=== PATIENT | female | born 1970 | race Caucasian/White ===

== ENCOUNTER → 2018-03-06 | Emergency (ER) | payer OTHER ==
[~2018-03-06] VITALS: Ht 157.5 cm; Wt 84.4 kg
[~2018-03-06] MED LIST: AMARYL; AZITHROMYCIN500 MG PO; DOXYCYCLINE HY100 MG PO; GLIPIZIDE ER5 MG; GLUCOTROL10 MG; INTESTINEX680 M1 PO; KETO10TA2 PO; LANTUS SOL100 UNIT/1; MEDROL4 MG PO; METFORMIN HCL500 MG; MOTRIN800 MG PO; ONGLYZA5 MG; PEPCID AC20 MG PO; TUSSIONEX PENNKI5 ML PO; XOPENEX1.25 MG/0. IH
== END | disposition home or self-care (01) ==
LOC: ER 18:59
DX: N39.0 Urinary tract infection, site not specified (principal); R10.2 Pelvic and perineal pain; N70.91 Salpingitis, unspecified

== ENCOUNTER 2023-06-09 11:34 | Emergency (ER) | payer OTHER ==
[~2023-06-09] VITALS: Ht 157.5 cm; Wt 79.4 kg
[~2023-06-09 11:34] MED LIST changes: +BACTRIM DS TAB1 EACH PO; +BENZACLIN GEL25 GM TOP; +CEFUROXIME500 MG PO; +CELEBREX100 MG PO; +CIPRO500 MG PO; +CYCLOBENZAPRINE10 MG PO; +DICLOFENAC POTA50 MG PO; +ENZYCAP PO; +FLOVENT HFA12 GM IH; +GLIMEPIRIDE2 MG; +LANTUS; +LEVSIN/SL0.125 MG PO; +LEVSIN/SL0.125 MG SL; +LIPITOR20 MG PO; +METFORMIN HCL500 M3 PO; +NORFLEX100MG PO; +ONGLYZA2.5 MG; +PRINIVIL5 MG; +SINGULAIR 10MG10 MG PO; +TRADJENTA5 MG; +VOLTAREN-XR100 MG PO; +ZANTAC300 MG; +ZYNCOF 20-400120 ML PO
[2023-06-09] MEDS ORDERED: ZESTRIL2.5 MG (12:08)
== END 2023-06-09 13:18 | disposition home or self-care (01) ==
LOC: ER 11:34
DX: H00.14 Chalazion left upper eyelid (principal)

== ENCOUNTER 2023-07-16 15:32 | Emergency (ER) | payer OTHER ==
[~2023-07-16] VITALS: Ht 157.5 cm; Wt 79.8 kg
[~2023-07-16 15:32] MED LIST changes: +ZESTRIL2.5 MG
[2023-07-16 17:32] LABS: HEMATOCRIT 39.1 % (36.0-45.00); HEMOGLOBIN 13.1 g/dL (12.0-15.00); MEAN CELL VOLUME 77.5 fL (80.00-100.00); MEAN CORPUSCULAR HGB CONC 33.5 g/dl (32.0-36.0); PLATELET COUNT 174 K/uL (150-450); RED BLOOD COUNT 5.05 M/uL (4.00-6.00); RED CELL DISTRIBUTION WIDTH 13.7 % (11.5-14.5)
[2023-07-16] MEDS ORDERED: ZITHROMAX500 MG PO (19:40)
[2023-07-16] MEDS ORDERED: XOPENEX CO1.25 MG/0. IH (19:40)
== END 2023-07-16 20:19 | disposition home or self-care (01) ==
LOC: ER 15:32
PROVIDERS: General Practice
DX: J06.9 Acute upper respiratory infection, unspecified (principal); E11.9 Type 2 diabetes mellitus without complications; Z79.84 Long term (current) use of oral hypoglycemic drugs; I10 Essential (primary) hypertension; Z87.09 Personal history of other diseases of the respiratory system; Z88.8 Allergy status to other drugs, medicaments and biological substances; Z20.822 Contact with and (suspected) exposure to COVID-19

== ENCOUNTER 2023-08-12 15:07 | Outpatient (CLI) | payer OTHER ==
[~2023-08-12 15:07] MED LIST changes: +XOPENEX CO1.25 MG/0. IH; +ZITHROMAX500 MG PO
== END 2023-08-12 15:17 | disposition home or self-care (01) ==
LOC: MRI 15:07
DX: M51.16 Intervertebral disc disorders with radiculopathy, lumbar region (principal); M48.062 Spinal stenosis, lumbar region with neurogenic claudication
CPT/HCPCS: 72148

== ENCOUNTER 2023-08-30 10:05 | Emergency (ER) | payer OTHER ==
[~2023-08-30] VITALS: Ht 157.5 cm; Wt 78.0 kg
[2023-08-30] MEDS ORDERED: GLUMETZA1000 MG (10:33)
[2023-08-30] MEDS ORDERED: IPRATROPIUM BROMIDE 0.5 MG/2.5 ML AMPUL.NEB IH ONE (11:45)
[2023-08-30] MEDS ORDERED: LEVALBUTEROL HCL 0.63 MG/3 ML SOLUTION IH ONE (11:45)
[2023-08-30] MEDS ORDERED: INSULIN REGULAR, HUMAN 1,000 UNIT/10 ML UNITS SUBCUTANEO ONE (11:45)
[2023-08-30 12:36] LABS: PH,URINE 5.5 (5.0-8.0); URINE APPEARANCE Clear; URINE BILIRRUBIN Negative (NEGATIVE); URINE BLOOD Negative; URINE COLOR Yellow; URINE LEUKOCYTE Trace; URINE NITRATE Negative; URINE PROTEIN Negative (NEGATIVE)
[2023-08-30 12:37] LABS: HEMATOCRIT 36.4 % (36.0-45.00); HEMOGLOBIN 12.1 g/dL (12.0-15.00); MEAN CELL VOLUME 77.8 fL (80.00-100.00); MEAN CORPUSCULAR HEMOGLOBIN 25.8 pg (27.00-32.0); MEAN CORPUSCULAR HGB CONC 33.2 g/dl (32.0-36.0); PLATELET COUNT 193 K/uL (150-450); RED BLOOD COUNT 4.67 M/uL (4.00-6.00); RED CELL DISTRIBUTION WIDTH 14.2 % (11.5-14.5)
[2023-08-30 12:40] LABS: URINE BACTERIA 700.4 uL (0.0-1933); URINE EPITHELIAL CELLS 10.2 uL (0.0-38.8); URINE WBC 24.8 uL (0.0-23.2)
[2023-08-30] MEDS ORDERED: ACETAMINOPHEN 325 MG TABLET PO SCH (13:00)
[2023-08-30 13:03] LABS: URINE GLUCOSE >=1000 MG/DL (NEGATIVE); URINE RBC 1.8 uL (0.0-20.8)
[2023-08-30 13:19] LABS: ALBUMIN 3.3 gm/dL (3.4-5.0); BILIRUBIN TOTAL 0.29 mg/dL (0.3-1.2); CALCIUM 9.2 mg/dL (8.5-10.1); CREATININE SERUM 0.68 mg/dL (0.55-1.02); GFR 90.51; GLOBULINA 3.7 G/DL (2.4-3.5); POTASSIUM 3.67 mEq/L (3.5-5.1)
== END 2023-08-30 14:55 | disposition home or self-care (01) ==
LOC: ER 10:05
PROVIDERS: General Practice
DX: J45.901 Unspecified asthma with (acute) exacerbation (principal); A90 Dengue fever [classical dengue]; E11.65 Type 2 diabetes mellitus with hyperglycemia; Z79.84 Long term (current) use of oral hypoglycemic drugs; Z88.8 Allergy status to other drugs, medicaments and biological substances

== ENCOUNTER 2023-10-24 07:37 | Inpatient (IN) | payer OTHER ==
[~2023-10-24] VITALS: Ht 157.5 cm; Wt 78.9 kg
[~2023-10-24 07:37] MED LIST changes: +GLUMETZA1000 MG
[2023-10-24] MEDS ORDERED: LIPITOR40 M1 PO (07:59)
[2023-10-24 09:10] LABS: HEMATOCRIT 35.9 % (36.0-45.00); HEMOGLOBIN 11.9 g/dL (12.0-15.00); MEAN CELL VOLUME 78.3 fL (80.00-100.00); MEAN CORPUSCULAR HEMOGLOBIN 25.9 pg (27.00-32.0); PLATELET COUNT 216 K/uL (150-450); RED BLOOD COUNT 4.59 M/uL (4.00-6.00); RED CELL DISTRIBUTION WIDTH 13.9 % (11.5-14.5)
[2023-10-24 09:12] LABS: URINE APPEARANCE Turbid; URINE BILIRRUBIN Negative (NEGATIVE); URINE COLOR Dark Yellow; URINE LEUKOCYTE Moderate; URINE NITRATE Negative; URINE PROTEIN 30 (NEGATIVE)
[2023-10-24 09:12] LABS: ALBUMIN 3.5 gm/dL (3.4-5.0); BILIRUBIN TOTAL 0.68 mg/dL (0.3-1.2); CALCIUM 9.5 mg/dL (8.5-10.1); CREATININE SERUM 0.59 mg/dL (0.55-1.02); GFR 106.62; GLOBULINA 3.6 G/DL (2.4-3.5); POTASSIUM 3.63 mEq/L (3.5-5.1); TOTAL PROTEIN 7.1 gm/dL (6.4-8.2)
[2023-10-24 09:15] LABS: URINE RBC 130.4 uL (0.0-20.8); URINE WBC 917.1 uL (0.0-23.2)
[2023-10-24 09:19] LABS: URINE BACTERIA > 9821.5 uL (0.0-1933); URINE BLOOD TRACE; URINE EPITHELIAL CELLS > 201.7 uL (0.0-38.8); URINE GLUCOSE >=1000 MG/DL (NEGATIVE)
[2023-10-24 09:44] LABS: URINE CRYSTALS MANY /HPF
[2023-10-24] MEDS ORDERED: FAMOTIDINE/PF 20 MG/2 ML VIAL IV SCH ×2 (12:11→21:00)
[2023-10-24] MEDS ORDERED: CEFTRIAXONE SODIUM 2,000 MG in 0.9 % SODIUM CHLORIDE 100 ML IV SCH (12:11)
[2023-10-24] MEDS ORDERED: 0.9 % SODIUM CHLORIDE 1,000 ML IV SCH (12:15)
[2023-10-24] MEDS ORDERED: INSULIN LISPRO 1,000 UNIT/10 ML UNITS SUBCUTANEO PRN (12:15)
[2023-10-24] MEDS ORDERED: DEXTROSE 50 % IN WATER 0.5 G/ML DISP.SYRIN IV PRN (12:15)
[2023-10-24] MEDS ORDERED: MONTELUKAST SODIUM 4 MG TABLET PO SCH (12:18)
[2023-10-24] MEDS ORDERED: MEPERIDINE HCL/PF 50 MG/ML VIAL IV SCH (13:00)
[2023-10-24] MEDS ORDERED: MONTELUKAST SODIUM 10 MG TABLET PO SCH (13:02)
[2023-10-24] MEDS ORDERED: MEPERIDINE HCL/PF 50 MG/ML VIAL IM SCH (13:55)
[2023-10-24 14:31] LABS: INR 1.03; PARTIAL THROMBOPLASTIN TIME 24.2 SECONDS (22.0-34.0); PROTHROMBIN TIME 10.8 SECONDS (9.0-11.5)
[2023-10-24] MEDS ORDERED: LISINOPRIL 2.5 MG TABLET PO SCH (15:27)
[2023-10-24] MEDS ORDERED: MEPERIDINE HCL/PF 25 MG/ML VIAL IV PRN (15:30)
[2023-10-24] MEDS ORDERED: KETOROLAC TROMETHAMINE 30 MG VIAL IV PRN (15:30)
[2023-10-24] MEDS ORDERED: DOXYCYCLINE HYCLATE 100 MG in 0.9 % SODIUM CHLORIDE 250 ML IV SCH (16:00)
[2023-10-24] MEDS ORDERED: NYSTATIN 30 GM,SILVER SULFADIAZINE 50 GM,ZINC OXIDE 30 GM TOP SCH (17:00)
[2023-10-24] MEDS ORDERED: INSULIN LISPRO 1,000 UNIT/10 ML UNITS SUBCUTANEO SCH (17:00)
[2023-10-24] MEDS ORDERED: INSULIN GLARGINE,HUM.REC.ANLOG 1,000 UNITS/10 ML UNITS SUBCUTANEO SCH (21:00)
[2023-10-25] MEDS ORDERED: ACYCLOVIR 400 MG TABLET PO SCH (01:00)
[2023-10-25 06:29] LABS: HEMATOCRIT 31.6 % (36.0-45.00); HEMOGLOBIN 10.7 g/dL (12.0-15.00); MEAN CELL VOLUME 77.9 fL (80.00-100.00); MEAN CORPUSCULAR HEMOGLOBIN 26.4 pg (27.00-32.0); MEAN CORPUSCULAR HGB CONC 33.9 g/dl (32.0-36.0); PLATELET COUNT 195 K/uL (150-450); RED BLOOD COUNT 4.06 M/uL (4.00-6.00); RED CELL DISTRIBUTION WIDTH 14.2 % (11.5-14.5)
[2023-10-25 07:10] LABS: BILIRUBIN TOTAL 0.34 mg/dL (0.3-1.2); CALCIUM 8.3 mg/dL (8.5-10.1); CHOL HDL RATIO 5.1 (0-5.0); CREATININE SERUM 0.57 mg/dL (0.55-1.02); GFR 110.95; GLOBULINA 2.8 G/DL (2.4-3.5); MAGNESIUM 1.9 mg/dL (1.8-2.4); PHOSPHOROUS 3.1 mg/dL (2.5-4.9); POTASSIUM 4.07 mEq/L (3.5-5.1); TOTAL PROTEIN 5.8 gm/dL (6.4-8.2)
[2023-10-25] MEDS ORDERED: INSULIN LISPRO 1,000 UNIT/10 ML UNITS SUBCUTANEO SCH (08:00)
[2023-10-25] MEDS ORDERED: ENOXAPARIN SODIUM 40 MG/0.4 ML SYRINGE SUBCUTANEO SCH (09:00)
[2023-10-25] MEDS ORDERED: AMINO ACIDS 1 EACH TABLET PO SCH (17:48)
[2023-10-25] MEDS ORDERED: INSULIN GLARGINE,HUM.REC.ANLOG 1,000 UNITS/10 ML UNITS SUBCUTANEO SCH (21:00)
[2023-10-26] MEDS ORDERED: IRON FUM,PS/FOLIC/BCOMP,C NO.9 1 CAP CAPSULE PO SCH (09:00)
[2023-10-26] MEDS ORDERED: POLYETHYLENE GLYCOL 3350 17 GM BLIST.PACK PO STA (11:27)
[2023-10-26] MEDS ORDERED: LACTULOSE 20 G/30 ML BLIST.PACK PO STA (11:27)
[2023-10-26] MEDS ORDERED: MAGNESIUM HYDROXIDE 30 ML BLIST.PACK PO STA (11:27)
[2023-10-26] MEDS ORDERED: POLYETHYLENE GLYCOL 3350 17 GM BLIST.PACK PO SCH (17:00)
[2023-10-26 19:10] LABS: chla t Negative (Negative); neiss Negative (Negative)
[2023-10-27 05:30] LABS: ALBUMIN 3.1 gm/dL (3.4-5.0); BILIRUBIN TOTAL 0.3 mg/dL (0.3-1.2); CALCIUM 8.7 mg/dL (8.5-10.1); CREATININE SERUM 0.52 mg/dL (0.55-1.02); GFR 123.35; GLOBULINA 2.8 G/DL (2.4-3.5); MAGNESIUM 2.2 mg/dL (1.8-2.4); POTASSIUM 3.98 mEq/L (3.5-5.1); TOTAL PROTEIN 5.9 gm/dL (6.4-8.2)
[2023-10-27 06:16] LABS: HEMATOCRIT 31.6 % (36.0-45.00); HEMOGLOBIN 10.7 g/dL (12.0-15.00); MEAN CELL VOLUME 77.4 fL (80.00-100.00); MEAN CORPUSCULAR HEMOGLOBIN 26.2 pg (27.00-32.0); MEAN CORPUSCULAR HGB CONC 33.9 g/dl (32.0-36.0); PLATELET COUNT 203 K/uL (150-450); RED BLOOD COUNT 4.08 M/uL (4.00-6.00)
[2023-10-27] MEDS ORDERED: CHLORHEXIDINE GLUCONATE 120 ML BOTTLE TOP SCH (12:36)
[2023-10-27] MEDS ORDERED: GABAPENTIN 300 MG CAPSULE PO SCH (17:00)
[2023-10-27] MEDS ORDERED: INSULIN GLARGINE,HUM.REC.ANLOG 1,000 UNITS/10 ML UNITS SUBCUTANEO SCH (21:00)
[2023-10-28] MEDS ORDERED: DOXYCYCLINE HY100 M2 PO (08:52)
[2023-10-28] MEDS ORDERED: CEFDINIR300 MG PO (08:52)
[2023-10-28] MEDS ORDERED: INTESTINEX680 M1 PO (08:54)
[2023-10-28] MEDS ORDERED: PEPCID AC20 MG PO (08:55)
[2023-10-28] MEDS ORDERED: HIBICLENS118 ML TOP (08:57)
[2023-10-28] MEDS ORDERED: POLYETHYLENE GLYCOL 3350 17 GM BLIST.PACK PO SCH (09:00)
[2023-10-28 10:20] LABS: PH,URINE 5.5 (5.0-8.0); URINE APPEARANCE Cloudy; URINE BILIRRUBIN Negative (NEGATIVE); URINE BLOOD Trace; URINE COLOR Yellow; URINE GLUCOSE Negative (NEGATIVE); URINE LEUKOCYTE Large; URINE NITRATE Negative; URINE PROTEIN Negative (NEGATIVE); URINE UROBILINOGEN 0.2 E.U./dl
[2023-10-28 10:24] LABS: URINE BACTERIA 764.7 uL (0.0-1933); URINE EPITHELIAL CELLS 190.7 uL (0.0-38.8); URINE RBC 28.4 uL (0.0-20.8); URINE WBC 584.2 uL (0.0-23.2)
[2023-10-28 10:44] LABS: URINE YEAST FEW /hpf
[2023-10-28] MEDS ORDERED: INSULIN GLARGINE,HUM.REC.ANLOG 1,000 UNITS/10 ML UNITS SUBCUTANEO SCH (21:00)
== END 2023-10-28 10:11 | disposition home or self-care (01) | DRG 690 ==
LOC: ER 07:37 → SEC-K 13:12 → MEDI 13:12
PROVIDERS: Emergency Medicine; General Practice; Internal Medicine; ADMIT Internal Medicine; ATTEND Internal Medicine
DX: N39.0 Urinary tract infection, site not specified (principal); A60.04 Herpesviral vulvovaginitis; N76.5 Ulceration of vagina; B95.61 Methicillin susceptible Staphylococcus aureus infection as the cause of diseases classified elsewhere; B96.89 Other specified bacterial agents as the cause of diseases classified elsewhere; J44.9 Chronic obstructive pulmonary disease, unspecified; K60.3 Anal fistula; I10 Essential (primary) hypertension; Z79.4 Long term (current) use of insulin; E11.65 Type 2 diabetes mellitus with hyperglycemia

== ENCOUNTER 2024-01-29 09:03 | Emergency (ER) | payer OTHER ==
[~2024-01-29] VITALS: Ht 157.5 cm; Wt 78.9 kg
[~2024-01-29 09:03] MED LIST changes: +CEFDINIR300 MG PO; +DOXYCYCLINE HY100 M2 PO; +HIBICLENS118 ML TOP; +LIPITOR40 M1 PO
[2024-01-29] MEDS ORDERED: TRIJARDY XR 5-1 EACH PO (09:32)
[2024-01-29] MEDS ORDERED: KETOROLAC TROMETHAMINE 60 MG VIAL IM STA (10:00)
== END 2024-01-29 11:53 | disposition home or self-care (01) ==
LOC: ER 09:03
DX: B34.9 Viral infection, unspecified (principal); Z88.8 Allergy status to other drugs, medicaments and biological substances; Z87.09 Personal history of other diseases of the respiratory system; E11.9 Type 2 diabetes mellitus without complications; Z79.84 Long term (current) use of oral hypoglycemic drugs; Z20.822 Contact with and (suspected) exposure to COVID-19

== ENCOUNTER 2024-04-27 08:31 | Emergency (ER) | payer OTHER ==
[~2024-04-27] VITALS: Ht 157.5 cm; Wt 72.6 kg
[~2024-04-27 08:31] MED LIST changes: +TRIJARDY XR 5-1 EACH PO
[2024-04-27] MEDS ORDERED: 0.9 % SODIUM CHLORIDE 1,000 ML IV ONE (09:00)
[2024-04-27] MEDS ORDERED: ONDANSETRON HCL 2 MG/ML VIAL IV ONE (09:00)
[2024-04-27] MEDS ORDERED: FAMOtidine 10 MG/ML (4ML VIAL) IV ONE (09:00)
[2024-04-27 10:00] LABS: HEMATOCRIT 40.9 % (36.0-45.00); HEMOGLOBIN 13.4 g/dL (12.0-15.00); MEAN CELL VOLUME 80.2 fL (80.00-100.00); MEAN CORPUSCULAR HEMOGLOBIN 26.3 pg (27.00-32.0); MEAN CORPUSCULAR HGB CONC 32.7 g/dl (32.0-36.0); PLATELET COUNT 247 K/uL (150-450); RED CELL DISTRIBUTION WIDTH 14.5 % (11.5-14.5)
[2024-04-27 10:28] LABS: ALKALINE PHOSPHATASE 90 U/L (50-136); ALT/SGPT 28 U/L (12-78); AMYLASE 73 U/L (25-115); ANION GAP 10 (10.0-20.0); AST/SGOT 9 U/L (15-37); BILIRUBIN TOTAL 0.43 mg/dL (0.3-1.2); BLOOD UREA NITROGEN 13 mg/dL (7-18); BUN CREA RATIO 24 (7.0-25.0); CALCIUM 9.5 mg/dL (8.5-10.1); CARBON DIOXIDE 22 mEq/L (21-32); CHLORIDE 112 mmol/L (98-107); CREATININE SERUM 0.55 mg/dL (0.55-1.02); GFR 115.62; GLOBULINA 4.1 G/DL (2.4-3.5); GLUCOSE FASTING 104 mg/dL (65-100); OSMOLALITY SERUM 280 MOSM/KG (275-295); POTASSIUM 4.07 mEq/L (3.5-5.1); SODIUM 140 mmol/L (136-145); TOTAL PROTEIN 8.1 gm/dL (6.4-8.2)
[2024-04-27 10:36] LABS: HCG QUANTITATIVE < 1 mUI/mL (1-3); LIPASE 194 U/L (13-75)
[2024-04-27 10:39] LABS: URINE APPEARANCE Cloudy; URINE BILIRRUBIN Negative (NEGATIVE); URINE BLOOD Negative; URINE COLOR Yellow; URINE KETONE 15 (NEGATIVE); URINE LEUKOCYTE Small; URINE NITRATE Negative; URINE PROTEIN Negative (NEGATIVE); URINE UROBILINOGEN 0.2 E.U./dl
[2024-04-27 10:43] LABS: URINE BACTERIA 1786.5 uL (0.0-1933); URINE CAST 8.55 uL (0.0-1.40); URINE EPITHELIAL CELLS 60.7 uL (0.0-38.8); URINE RBC 744.6 uL (0.0-20.8); URINE WBC 149.3 uL (0.0-23.2)
[2024-04-27 11:31] LABS: URINE GLUCOSE >=1000 MG/DL (NEGATIVE)
[2024-04-27] MEDS ORDERED: ZOFRAN8 MG PO (11:52)
[2024-04-27] MEDS ORDERED: METRONIDAZOLE500 MG PO (11:52)
[2024-04-27] MEDS ORDERED: PEPCID AC20 MG PO (11:52)
== END 2024-04-27 12:41 | disposition home or self-care (01) ==
LOC: ER 08:33
PROVIDERS: General Practice
DX: R19.7 Diarrhea, unspecified (principal); E11.9 Type 2 diabetes mellitus without complications; Z79.4 Long term (current) use of insulin; Z79.84 Long term (current) use of oral hypoglycemic drugs; I10 Essential (primary) hypertension; Z88.8 Allergy status to other drugs, medicaments and biological substances; Z87.09 Personal history of other diseases of the respiratory system

== ENCOUNTER 2024-04-28 17:24 | Inpatient (IN) | payer OTHER ==
[~2024-04-28] VITALS: Ht 152.4 cm; Wt 73.5 kg
[~2024-04-28 17:24] MED LIST changes: +METRONIDAZOLE500 MG PO; +ZOFRAN8 MG PO
--- NOTE | 2024-04-28 17:41 | NUR ---
SE RECIBE FEMINA ALERTA Y ORIENTADA X3 QUIEN REFIERE TENER DIARREAS DESDE EL SINDY. PACIENTE REFIERE MAS DE 10 EPISODIOS ABUNDANTES EN EL GURWINDER DE HOY. REFIERE SAMMY VISITO LA GEE DE EMERGENCIAS POR LOS MISMOS SINTOMAS. SE MIDEN S/V Y SE UBICA.
[2024-04-28] MEDS ORDERED: 0.9 % SODIUM CHLORIDE 1,000 ML IV STA (17:52)
[2024-04-28] MEDS ORDERED: MEPERIDINE HCL/PF 50 MG/ML VIAL IM ONE (18:00)
[2024-04-28] MEDS ORDERED: PROMETHAZINE HCL 25 MG/ML AMPUL IM ONE (18:00)
--- NOTE | 2024-04-28 18:07 | NUR ---
SE EDUCA A PTE SOBRE TX MEDICO, SE CINTHIA MUESTRAS DE LABORATORIO UTILIZANDO MEDIDAS ASEPTICAS. SE COLOCA H/L JUAN DE EDEMA. SE ADMINISTRAN MEDICAMENTOS LOS CUALES TOLERA. SE NOTIFICA ESTUDIO DE SONOGRAFIA PENDIENTE A REALIZAR.
[2024-04-28 18:09] LABS: HEMOGLOBIN 13.3 g/dL (12.0-15.00); MEAN CELL VOLUME 78.6 fL (80.00-100.00); MEAN CORPUSCULAR HEMOGLOBIN 26.2 pg (27.00-32.0); MEAN CORPUSCULAR HGB CONC 33.3 g/dl (32.0-36.0); PLATELET COUNT 263 K/uL (150-450); RED BLOOD COUNT 5.09 M/uL (4.00-6.00); RED CELL DISTRIBUTION WIDTH 14.3 % (11.5-14.5)
[2024-04-28 18:38] LABS: CALCIUM 9.3 mg/dL (8.5-10.1); CREATININE SERUM 0.64 mg/dL (0.55-1.02); GFR 97.07; POTASSIUM 3.65 mEq/L (3.5-5.1)
[2024-04-28 19:28] LABS: URINE APPEARANCE Cloudy; URINE BILIRRUBIN Negative (NEGATIVE); URINE BLOOD Negative; URINE COLOR Yellow; URINE KETONE Negative (NEGATIVE); URINE LEUKOCYTE Small; URINE NITRATE Negative; URINE PROTEIN Negative (NEGATIVE)
[2024-04-28 19:32] LABS: URINE BACTERIA 1671.9 uL (0.0-1933); URINE EPITHELIAL CELLS 76.8 uL (0.0-38.8); URINE RBC 457.3 uL (0.0-20.8); URINE WBC 225.1 uL (0.0-23.2)
[2024-04-28 20:14] LABS: URINE CAST 0.91 uL (0.0-1.40); URINE GLUCOSE >=1000 MG/DL (NEGATIVE); URINE YEAST NEGATIVE /hpf
[2024-04-29] MEDS ORDERED: HYOSCYAMINE SULFATE 0.125 MG TAB.SUBL SL STA (02:59)
[2024-04-29] MEDS ORDERED: LACTOBACILLUS ACIDOPHILUS 1 CAP CAP PO STA (03:00)
[2024-04-29] MEDS ORDERED: CIPROFLOXACIN IN 5 % DEXTROSE 200 ML IV SCH (03:00)
[2024-04-29] MEDS ORDERED: METRONIDAZOLE/SODIUM CHLORIDE 100 ML IV SCH (03:00)
--- NOTE | 2024-04-29 03:21 | NUR ---
RE-EVALUA PTE. SE ORIENTA A PACIENTE SOBRE TX MEDICO, REFIERE ENTENDER. SE ADMINISTRAN MEDICAMENTOS CAT ORDEN MEDICA. SE MANTIENE BAJO OBSERVACION.
--- NOTE | 2024-04-29 07:22 | NUR ---
SE RECIBE PTE ALERTA Y ORIENTADA X3 EN PRESLEY BAJA POR SEGURIDAD. SE OBSERVA CANALIZACION PATENTEN BAJANDO IVFLUIDS CAT ORDEN MEDICA. SE EDUCA A PTE SOBRE LA ESPERA DE CONSULTA CON DR OSBORNE.
[2024-04-29] MEDS ORDERED: FAMOTIDINE/PF 20 MG in 0.9 % SODIUM CHLORIDE 100 ML IV SCH (09:18)
[2024-04-29] MEDS ORDERED: KETOROLAC TROMETHAMINE 30 MG VIAL IV SCH (09:18)
[2024-04-29] MEDS ORDERED: 0.9 % SODIUM CHLORIDE 1,000 ML IV SCH (09:30)
[2024-04-29] MEDS ORDERED: ONDANSETRON HCL 4 MG in 0.9 % SODIUM CHLORIDE 50 ML IV PRN (09:30)
[2024-04-29 09:32] VITALS: BP 109/79
[2024-04-29 09:40] VITALS: BP 109/79; O2SAT 00
[2024-04-29] MEDS ORDERED: DEXTROSE 50 % IN WATER 0.5 G/ML DISP.SYRIN IV PRN (09:45)
[2024-04-29] MEDS ORDERED: INSULIN LISPRO 1,000 UNIT/10 ML UNITS SUBCUTANEO PRN (09:45)
[2024-04-29 10:46] LABS: ob NEGATIVE (NEGATIVE)
[2024-04-29 11:15] LABS: CHOL HDL RATIO 6.7 (0-5.0)
[2024-04-29 16:26] VITALS: BP 137/57
[2024-04-30 01:29] VITALS: BP 102/67; O2SAT 98
[2024-04-30 08:29] VITALS: BP 161/83; O2SAT 99
[2024-04-30 08:33] VITALS: BP 104/65; O2SAT 99
[2024-04-30] MEDS ORDERED: LACTOBACILLUS ACIDOPHILUS 1 CAP CAP PO SCH (13:00)
[2024-04-30 16:41] VITALS: BP 135/80
[2024-05-01 01:50] VITALS: BP 118/74; O2SAT 99
[2024-05-01] MEDS ORDERED: 0.9 % SODIUM CHLORIDE 1,000 ML IV SCH (06:00)
[2024-05-01 10:38] VITALS: BP 128/76; O2SAT 97
[2024-05-01 14:51] LABS: HEMATOCRIT 36.4 % (36.0-45.00); HEMOGLOBIN 11.9 g/dL (12.0-15.00); MEAN CELL VOLUME 79.2 fL (80.00-100.00); MEAN CORPUSCULAR HEMOGLOBIN 25.9 pg (27.00-32.0); MEAN CORPUSCULAR HGB CONC 32.7 g/dl (32.0-36.0); PLATELET COUNT 226 K/uL (150-450); RED CELL DISTRIBUTION WIDTH 14.9 % (11.5-14.5)
[2024-05-01 15:30] LABS: ALBUMIN 3.6 gm/dL (3.4-5.0); BILIRUBIN TOTAL 0.36 mg/dL (0.3-1.2); CALCIUM 8.9 mg/dL (8.5-10.1); CREATININE SERUM 0.61 mg/dL (0.55-1.02); GFR 102.6; GLOBULINA 2.8 G/DL (2.4-3.5); POTASSIUM 4.29 mEq/L (3.5-5.1); TOTAL PROTEIN 6.4 gm/dL (6.4-8.2)
[2024-05-01 17:05] VITALS: BP 129/76
[2024-05-02] VITALS: BP 121/64
[2024-05-02 08:43] VITALS: BP 108/74; O2SAT 100
[2024-05-02 08:45] VITALS: BP 108/65; O2SAT 98
[2024-05-02 17:00] VITALS: BP 148/86; O2SAT 97
[2024-05-03 00:39] VITALS: BP 123/72; O2SAT 99
[2024-05-03 09:17] VITALS: BP 144/89; O2SAT 99
[2024-05-03] MEDS ORDERED: INSULIN NPH HUM/REG INSULIN HM 1,000 UNIT/10 ML UNITS SUBCUTANEO STA (12:04)
[2024-05-03 16:00] VITALS: BP 139/81; O2SAT 99
[2024-05-04 00:55] VITALS: BP 138/80; O2SAT 98
[2024-05-04] MEDS ORDERED: INSULIN NPH HUM/REG INSULIN HM 1,000 UNIT/10 ML UNITS SUBCUTANEO SCH (08:00)
[2024-05-04 08:15] VITALS: BP 130/85; O2SAT 98
== END 2024-05-04 12:46 | disposition home or self-care (01) | DRG 392 ==
LOC: ER 17:25 → MEDI 04-29 09:39 → SEC-K 04-29 09:39 → MEDI 04-29 12:34
PROVIDERS: Emergency Medicine; General Practice; Internal Medicine; ADMIT Internal Medicine; ATTEND Internal Medicine
PROC: BW40ZZZ Ultrasonography of Abdomen (ICD-10-PCS; principal; 2024-04-28)
PROC: BW21ZZZ Computerized Tomography (CT Scan) of Abdomen and Pelvis (ICD-10-PCS; 2024-04-28)
PROC: 0X950ZZ Drainage of Left Axilla, Open Approach (ICD-10-PCS; 2024-05-01)
DX: K52.89 Other specified noninfective gastroenteritis and colitis (principal); K86.1 Other chronic pancreatitis; L02.412 Cutaneous abscess of left axilla; N39.0 Urinary tract infection, site not specified; E86.0 Dehydration; E11.9 Type 2 diabetes mellitus without complications; A60.09 Herpesviral infection of other urogenital tract; K29.70 Gastritis, unspecified, without bleeding; B95.61 Methicillin susceptible Staphylococcus aureus infection as the cause of diseases classified elsewhere

== ENCOUNTER 2024-09-02 19:26 | Emergency (ER) | payer OTHER ==
[~2024-09-02] VITALS: Ht 157.5 cm; Wt 70.8 kg
[2024-09-02 19:32] VITALS: BP 119/80; O2SAT 98
[2024-09-02] MEDS ORDERED: KETOROLAC TROMETHAMINE 30 MG VIAL IM ONE (20:00)
[2024-09-02] MEDS ORDERED: NORFLEX100MG PO (20:08)
[2024-09-02] MEDS ORDERED: KETOROLAC TROMETHAMINE 30 MG VIAL ONE (20:11)
== END 2024-09-02 20:36 | disposition home or self-care (01) ==
LOC: ER 19:29
DX: M62.838 Other muscle spasm (principal); E11.9 Type 2 diabetes mellitus without complications; Z79.4 Long term (current) use of insulin; Z79.84 Long term (current) use of oral hypoglycemic drugs; Z88.8 Allergy status to other drugs, medicaments and biological substances; Z87.09 Personal history of other diseases of the respiratory system

== ENCOUNTER 2025-04-22 10:11 | Emergency (ER) | payer OTHER ==
[~2025-04-22] VITALS: Ht 157.5 cm; Wt 72.6 kg
[2025-04-22] MEDS ORDERED: KETOROLAC TROMETHAMINE 60 MG VIAL IM ONE (12:00)
[2025-04-22] MEDS ORDERED: KETOROLAC TROMETHAMINE 30 MG VIAL ONE (12:01)
[2025-04-22] MEDS ORDERED: DICLOFENAC SODI75 MG PO (16:06)
[2025-04-22] MEDS ORDERED: NORFLEX100MG PO (16:06)
== END 2025-04-22 16:45 | disposition home or self-care (01) ==
LOC: ER 10:12
DX: S00.83XA Contusion of other part of head, initial encounter (principal); S80.02XA Contusion of left knee, initial encounter; S80.01XA Contusion of right knee, initial encounter; S50.02XA Contusion of left elbow, initial encounter; W18.39XA Other fall on same level, initial encounter; Y93.89 Activity, other specified; Y92.238 Other place in hospital as the place of occurrence of the external cause; Y99.9 Unspecified external cause status; E11.9 Type 2 diabetes mellitus without complications; Z79.84 Long term (current) use of oral hypoglycemic drugs; Z88.8 Allergy status to other drugs, medicaments and biological substances